=== PATIENT | female | born 1980 | race Caucasian/White ===

== ENCOUNTER 2017-10-01 21:27 | Emergency (ER) | payer BC, OTHER ==
[2017-10-01 21:50] VITALS: BP 111/73; PULSE 62
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
[2017-10-01] MEDS ORDERED: BABY ASPIRIN 81 MG CHEW PO ONE (22:09)
[2017-10-01] MEDS ORDERED: BABY ASPIRIN 81 MG CHEW ONE (22:13)
[2017-10-01 22:16] LABS: BASOPHIL % 0.4 % (0.0-0.4); Basophil (Absolute #) 0.03 (0-0.4); Eosinophil % 3.4 % (0.00-5.0); Eosinophil (Absolute #) 0.29 (0-0.5); Granulocyte Absolute (ANC) 5.19 (1.4-6.9); Hematocrit 36.8 % (35-47); Hemoglobin 12.8 gm/dl (12.0-16.0); Lymphocyte (Absolute #) 2.36 (1.0-4.6); Lymphocytes % 27.7 % (24.0-44.0); Mean Cell Volume 87.8 fl (78-100); Mean Corpuscular Hemoglobin 30.5 pg (26-32); Mean Corpuscular Hgb Concent. 34.8 g/dl (32-36); Mean Platelet Volume 12.4 fl (6-9.5); Monocyte (Absolute #) 0.64 (0.0-1.3); Monocytes % 7.5 % (0.0-12.0); Platelet Count 245 K/mm3 (150-450); Red Blood Count 4.19 M/mm3 (4.1-5.4); Red Cell Distribution Width 13.4 % (11.5-14.0); White Blood Count 8.5 K/mm3 (4.0-10.5)
[2017-10-01 22:21] LABS: ALBUMIN 3.9 g/dL (3.5-5.0); ALKALINE PHOSPHATASE 53 U/L (38-126); BLOOD UREA NITROGEN 12 mg/dL (7-17); CHLORIDE 109 mmol/L (98-107); Calcium 9.5 mg/dL (8.4-10.2); Carbon Dioxide 23 mmol/L (22-30); Creatinine 1 0.65 mg/dL (0.52-1.04); Glucose 97 mg/dL (74-106); Potassium 4.2 mmol/L (3.5-5.1); SGOT/AST 21 U/L (14-36); SGPT/ALT 19 U/L (0-35); SODIUM 141 mmol/L (137-145); Total Protein 7.3 g/dL (6.3-8.2)
[2017-10-01 22:30] LABS: NT PRO BNP 174 pg/mL (0-450)
[2017-10-01 22:43] VITALS: O2SAT 98
[2017-10-01 23:27] LABS: Slide Review 1 YES
[2017-10-01 23:52] LABS: Appearance CLEAR (CLEAR); Bilirubin NEGATIVE (NEGATIVE); Blood NEGATIVE Ery/ul (0-5); Glucose NEGATIVE (NEGATIVE); Ketones NEGATIVE (NEGATIVE); Leukocyte Esterase NEGATIVE (NEGATIVE); Nitrite NEGATIVE (NEGATIVE); Protein,Urine Dip NEGATIVE (Negative); Specific Gravity 1.015 (1.005-1.025); Urobilinogen NORMAL mg/dL (0-1)
[2017-10-02 00:06] LABS: Amphetamine,Urine NEGATIVE (NEGATIVE); Barbiturate,Urine NEGATIVE (NEGATIVE); Benzodiazepine,Urine NEGATIVE (NEGATIVE); Cocaine,Urine NEGATIVE (NEGATIVE); Opiate,Urine NEGATIVE (NEGATIVE); PCP,Urine NEGATIVE (NEGATIVE); THC,Urine NEGATIVE (NEGATIVE)
[2017-10-02 00:12] LABS: Methadone,Urine NEGATIVE (NEGATIVE)
--- NOTE | 2017-10-02 08:43 | XRAY ---
Indication: Chest pain and short of breath 3 days. Multiple contiguous axial images obtained through the chest using 80 cc Isovue 370 contrast and PE protocol. Comparison: None There is satisfactory opacification of the pulmonary arteries to includes the lobar and segmental branches. No filling defect or pulmonary embolus. Heart is not enlarged. Aorta is normal in course and caliber with anatomic variant for bovine arch. No pathologic mediastinal/hilar lymphadenopathy. Small hiatal hernia. Examination of the lung parenchyma demonstrates inflated lungs with minimal right middle lobe fibrosis/scarring. No suspicious pulmonary mass, infiltrate, or effusion. Bony thorax intact. Limited upper abdomen demonstrates splenomegaly measuring 13.2 cm in greatest axial dimension. Impression: 1. Negative pulmonary embolus. 2. No acute cardiopulmonary abnormalities. 3. Incidental small hiatal hernia and splenomegaly. Comment: Preliminary interpretation was made by [facility]. No critical discrepancy. CT DI 28.02
--- NOTE | 2017-10-02 08:43 | XRAY ---
Indication: Chest pain and short of breath. Comparison: September 16, 2015. PA/lateral chest again demonstrates normal heart, lungs, and bony thorax.
== END 2017-10-02 00:45 | disposition home or self-care (01) ==
LOC: ED 21:27
DX: K20.9 Esophagitis, unspecified (principal); M79.89 Other specified soft tissue disorders; R06.02 Shortness of breath
CPT/HCPCS: 36000; 36415; 71046; 71260; 80053; 80307; 81002; 83735; 83880; 84484; 85025; 85379; 93005; 93041; 99284; A9270-GY

== ENCOUNTER 2019-01-01 13:54 | Emergency (ER) | payer BC ==
[2019-01-01] MEDS ORDERED: TORAdol 30 mg Injection IV ONE (14:20)
[2019-01-01] MEDS ORDERED: Sodium Chloride 0.9% 1000 ML 1,000 ML IV STA (14:20)
[2019-01-01] MEDS ORDERED: Zofran 4 MG/2 ML VIAL IV ONE (14:20)
[2019-01-01] MEDS ORDERED: BENADRYL 50 MG/ML IV ONE (14:22)
--- NOTE | 2019-01-01 14:25 | ERPHSYRPT ---
- History of Present Illness Time Seen by Provider: 01/01/19 14:15 Exam Limitations: no limitations Patient Subjective Stated Complaint: Pt states "I have had this headache for the past two days and it comes and goes. I went to [facility] and they sent me here." Triage Nursing Assessment: Pt presented alert and oriented X 3, skin pwd Pt ambulates with upright steady gait, able to speak in clear full sentenecs. Physician History: Headache for the past one day, starting a the back of her neck to the top of her head causing some nausea and photophobia. The patient's headache is lasting longer than her usual past headaches, been constant but has not been any more severe. It is sharp in nature. Patient referred to the emergency room from a quick care clinic. Timing/Duration: yesterday Quality: sharpness Severity of Pain-Max: moderate Severity of Pain-Current: mild Recent Head Trauma: no recent headache/trauma Modifying Factors: Improves With: exposure to light (slight photophobia). Worsens With: immobilization, medication, movement, rest, noise, position Associated Symptoms: neck pain, No confusion, No dizziness, No fatigue, No facial pain, No fever/chills, No flushing, No light-headedness, No loss of consciousness, No nasal congestion, No nasal drainage, No numbness in legs/feet , No rash, No sweating, No scotoma, No seizures, No sinus infection, No sensitive to light, No speech problems, No stiff neck, No trouble walking, No vision changes, No visual disturbance, No weakness Previous symptoms: same symptoms as today Allergies/Adverse Reactions: No Known Drug Allergies Allergy (Unverified 01/01/19 14:07) Hx Tetanus, Diphtheria Vaccination/Date Given: Yes Hx Influenza Vaccination/Date Given: No Hx Pneumococcal Vaccination/Date Given: No Immunizations Up to Date: Yes - Review of Systems Constitutional: No Fever, No Chills, No Fatigue, No Lethargy, No Malaise Eyes: No Symptoms Ears, Nose, & Throat: No Symptoms, No Ear Pain, No Ear Discharge, No Nose Discharge, No Sinus Drainage, No Epistaxis, No Mouth Pain, No Throat Pain, No Throat Swelling, No Hoarse Respiratory: No Cough, No Dyspnea Cardiac: No Chest Pain, No Edema, No Syncope Abdominal/Gastrointestinal: Nausea, No Abdominal Pain, No Vomiting, No Diarrhea Genitourinary Symptoms: No Dysuria, No Hematuria, No Flank Pain Musculoskeletal: Neck Pain, No Back Pain, No Injury Skin: No Rash Neurological: Headache, No Dizziness, No Focal Weakness, No Parasthesia, No Sensory Changes, No Tremors, No Vertigo Psychological: No Symptoms Endocrine: No Symptoms All Other Systems: Reviewed and Negative - Past Medical History Pertinent Past Medical History: No - Past Surgical History Past Surgical History: Yes Female Surgical History: Section, Hysterectomy - Social History Smoking Status: Former smoker Exposure to second hand smoke: No Drug Use: none Patient Lives Alone: No - Female History Hx Last Menstrual Period: hysterectomy Hx Now: No - Nursing Vital Signs Nursing Vital Signs: Initial Vital Signs Temperature 97.4 F 01/01/19 13:59 Pulse Rate 80 01/01/19 13:59 Respiratory Rate 18 01/01/19 13:59 Blood Pressure 127/71 01/01/19 13:59 O2 Sat by Pulse Oximetry 97 01/01/19 13:59 Pain Scale Pain Intensity 0 - Physical Exam General Appearance: no apparent distress Eye Exam: PERRL/EOMI, eyes nml inspection, other (negative papilledema or hemorrhage on fundoscopic examination), No scleral icterus, No post op pupil defect (L), No post op pupil defect (R) Ears, Nose, Throat Exam: normal ENT inspection, moist mucous membranes Neck Exam: normal inspection, non-tender, supple, full range of motion, No meningismus, No Brudzinski, No Kernig's, No carotid bruit, No JVD, No limited range of motion, No lymphadenopathy Respiratory Exam: normal breath sounds, lungs clear, airway intact, No respiratory distress, No diminished breath sounds, No crackles/rales, No rhonchi , No wheezing, No stridor Cardiovascular Exam: regular rate/rhythm, normal heart sounds, normal peripheral pulses, capillary refill <2 sec Gastrointestinal/Abdominal Exam: soft, No tenderness, No distention Back Exam: normal inspection, normal range of motion, No CVA tenderness, No vertebral tenderness Mental Status Exam: alert, oriented x 3, 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 Patient is in pendulous. No other bony, articular, or soft tissue abnormalities per radiologist's interpretation) Ordered Tests: Active Orders 24 hr Category Date Time Status IV Insertion STAT Care 01/01/19 14:20 Active Oxygen-ED Only NON-REBREATHER 100% Care 01/01/19 14:20 Active CERVICAL SPINE (2 OR 3 VIEW) Stat Exams 01/01/19 14:23 Completed Medication Summary Discontinued Medications Generic Name Dose Route Start Last Admin Trade Name Freq PRN Reason Stop Dose Admin Diphenhydramine HCl 25 mg 01/01/19 14:22 01/01/19 15:47 Benadryl 50 Mg/Ml IV 01/01/19 14:23 25 mg STAT ONE Administration Diphenhydramine HCl Confirm 01/01/19 14:26 Benadryl 50 Mg/Ml Administered 01/01/19 14:27 Dose 50 mg .ROUTE .STK-MED ONE Sodium Chloride 1,000 mls @ 999 mls/hr 01/01/19 14:20 01/01/19 15:47 Sodium Chloride 0.9% 1000 Ml IV 01/01/19 15:20 999 mls/hr .Q1H1M STA Administration Sodium Chloride Confirm 01/01/19 14:26 Sodium Chloride 0.9% 1000 Ml Administered 01/01/19 14:27 Dose 1,000 mls @ ud .ROUTE .STK-MED ONE Ketorolac Tromethamine 30 mg 01/01/19 14:20 01/01/19 15:47 Toradol 30 Mg Injection IV 01/01/19 14:21 30 mg STAT ONE Administration Ketorolac Tromethamine Confirm 01/01/19 14:26 Toradol 30 Mg Injection Administered 01/01/19 14:27 Dose 30 mg .ROUTE .STK-MED ONE Ondansetron HCl 4 mg 01/01/19 14:20 01/01/19 15:46 Zofran 4 Mg/2 Ml Vial IV 01/01/19 14:21 4 mg STAT ONE Administration Ondansetron HCl Confirm 01/01/19 14:26 Zofran 4 Mg/2 Ml Vial Administered 01/01/19 14:27 Dose 4 mg .ROUTE .STXapo-MED ONE - Progress Progress: improved, re-examined Progress Note: 01/01/19 16:54 patient's pain has improved significantly. Patient has no neurologic deficits and has a supple neck with no suspicious rashes. Counseled pt/family regarding: diagnosis, need for follow-up, rad results - Departure Departure Disposition: Home Clinical Impression: Cervical paraspinal muscle spasm Tension-type headache, unspecified, not intractable Qualifiers: Headache chronicity pattern: acute headache Qualified Code(s): G44.209 - Tension-type headache, unspecified, not intractable Condition: Good Critical Care Time: No Referrals: BRANDON WARD [Primary Care Provider] - 01/03/19 Instructions: Torticollis (DC), Tension Headache (DC) Additional Instructions: return immediately back to the emergency department if any worsening headache, any fever, new skin rash, new nausea vomiting, or any other concerning signs or symptoms that were not present at today's visit for immediate reevaluation in the emergency department Forms: Work/School Release Form Prescriptions: Etodolac 400 mg [Lodine 400 mg] 400 mg PO BID PRN PRN #20 tablet PRN Reason: Pain Tizanidine HCl 4 mg [Zanaflex 4 MG] 0 mg PO TID PRN #12 tablet PRN Reason: Muscle Spasms
[2019-01-01] MEDS ORDERED: Sodium Chloride 0.9% 1000 ML 1,000 ML ONE (14:26)
[2019-01-01] MEDS ORDERED: Zofran 4 MG/2 ML VIAL ONE (14:26)
[2019-01-01] MEDS ORDERED: TORAdol 30 mg Injection ONE (14:26)
[2019-01-01] MEDS ORDERED: BENADRYL 50 MG/ML ONE (14:26)
--- NOTE | 2019-01-01 16:23 | XRAY ---
Indication: Headache. No known injury. Comparison: None 3 views of the cervical spine demonstrates cervical lordotic straightening, positional versus paraspinal spasm. Patient is edentulous. No other bony, articular, or soft tissue abnormalities.
[2019-01-01 16:38] VITALS: O2SAT 97
[2019-01-01 17:26] VITALS: BP 115/75; PULSE 66
== END 2019-01-01 17:39 | disposition home or self-care (01) ==
LOC: ED 13:54
DX: M62.838 Other muscle spasm (principal); G44.209 Tension-type headache, unspecified, not intractable
CPT/HCPCS: 36000; 72040; 96360; 96374; 96375; 99284; J1200; J1885; J2405